=== PATIENT | male | born 1965 | race African-American/Black ===

== ENCOUNTER 2019-10-06 23:54 | Emergency (ER) | payer MEDICAID, OTHER ==
[~2019-10-06] VITALS: Ht 180.3 cm; Wt 86.0 kg
[2019-10-07] MEDS ORDERED: IBUPROFEN 400 MG TABLET. PO ONE (01:00)
[2019-10-07] MEDS ORDERED: NEOMY/BACITR/POLYMYXIN OINT PACKET. TP ONE ×2 (01:15→02:30)
--- NOTE | 2019-10-07 01:43 | PHYS DOC ---
Past Medical History Past Medical History: Diabetes-Type II, Hypertension (SAWYER JAVIER APRN) Past Surgical History: No Surgical History (SAWYER JAVIER APRN) Smoking Status: Never Smoker Alcohol Use: None (SAWYER JAVIER APRN) Attending Signature I have participated in the care of this patient and I have reviewed and agree with all pertinent clinical information above including history, exam, and recommendations. (LISBETH MCFARLAND MD) Adult General Chief Complaint Chief Complaint: FOOT INJURY PAIN HPI HPI Patient is a 54 year old male who presents to the emergency department with complaints of bleeding from his left fifth toe. Patient states he does not know what he did to his toe. He reports a history of diabetic neuropathy and states he is not able to feel his toes. Patient noticed that his fifth toenail was bleeding he thinks that he stubbed his toe into something. Patient states his last tetanus shot was less than 5 years ago. He currently denies any pain. Patient reports a history of chronic swelling in his lower legs he denies any change in his swelling any shortness of breath, chest pain, palpitations, fever, or weeping from his legs. Patient states he is here because he wants to make sure that his toe was okay. (SAWYER JAVIER APRN) Review of Systems Review of Systems Complete ROS is negative unless otherwise noted in HPI. (SAWYER JAVIER APRN) Current Medications Current Medications Current Medications Medications (Trade) Dose Ordered Sig/Grupo Start Time Stop Time Status Last Admin Dose Admin Ibuprofen (Motrin) 800 mg 1X ONCE 10/07/19 01:00 10/07/19 01:01 Cancel Neomycin/ Polymyxin/ Bacitracin (Triple Antibiotic Ointment) 1 pkt 1X ONCE 10/07/19 02:30 10/07/19 02:21 DC (LISBETH MCFARLAND MD) Allergies Allergies Allergies Coded Allergies Type Severity Reaction Last Updated Verified No Known Drug Allergies 10/07/19 No (LISBETH MCFARLAND MD) Physical Exam Physical Exam See Above Constitutional: Well developed, well nourished, no acute distress, non-toxic appearance. [] HENT: Normocephalic, atraumatic, bilateral external ears normal, nose normal. [] Eyes: PERRLA, EOMI, conjunctiva normal, no discharge. [] Neck: Normal range of motion, no stridor. [] Cardiovascular:Heart rate regular rhythm Lungs & Thorax: Respirations even and unlabored, no retractions, no respiratory distress Skin: Warm, dry, no erythema, no rash; less than 1 cm skin tear noted just proximal to the nailbed of the left fifth toe, no active bleeding; BLE skin is dry and flaky without erythema [] Extremities: L foot: No bony tenderness, no cyanosis, no clubbing, ROM intact, no edema, 2+ pedal pulse. [] Neurologic: Alert and oriented X 3, no focal deficits noted. [] Psychologic: Affect normal, judgement normal, mood normal. [] (SAWYER JAVIER APRN) Current Patient Data Vital Signs Vital Signs Date Time Temp Pulse Resp B/P (MAP) Pulse Ox O2 Delivery O2 Flow Rate FiO2 10/07/19 02:25 98.5 78 16 196/89 (124) 98 Room Air 98.5 (LISBETH MCFARLAND MD) EKG EKG [] (SAWYER JAVIER APRN) Radiology/Procedures Radiology/Procedures L foot 5th digit negative for acute fracture read by Dr. Mcfarland [] (SAWYER JAVIER APRN) Course & Med Decision Making Course & Med Decision Making Pertinent Labs and Imaging studies reviewed. (See chart for details) [] (SAWYER JAVIER APRN) Dragon Disclaimer Dragon Disclaimer This electronic medical record was generated, in whole or in part, using a voice recognition dictation system. (SAWYER JAVIER APRN) Departure Departure Impression: Primary Impression: Avulsion of skin of toe Additional Impression: Loose toenail Disposition: HOME, SELF-CARE Condition: STABLE Referrals: UNKNOWN PCP NAME (PCP) Patient Instructions: Toe Avulsion Additional Instructions: Fill the prescription and use it as directed. Keep the area clean and dry. You may take Tylenol or ibuprofen as needed for pain. Keep the dressing that was placed today on for 24 hours then change the dressing twice a day and apply antibiotic ointment to the area. Follow-up with your primary care doctor for wound recheck next week, return to the ER sooner if you develop signs of infection including: redness, warmth, drainage, or a fever. Scripts Cephalexin (CEPHALEXIN) 500 Mg Capsule 1 CAP PO TID for 7 Days, #21 CAP 0 Refills Prov: SAWYER JAVIER APRN 10/07/19 Problem Qualifiers Primary Impression: Avulsion of skin of toe Encounter type: initial encounter Qualified Codes: S91.109A - Unspecified open wound of unspecified toe(s) without damage to nail, initial encounter SAWYER JAVIER APRN Oct 07, 2019 01:43 LISBETH MCFARLAND MD Oct 07, 2019 03:23
[2019-10-07] MEDS ORDERED: CEPH500C PO (02:14)
[2019-10-07 02:25] VITALS: BP 196/89
--- NOTE | 2019-10-07 03:03 | RAD ---
Left foot 3 views: Reason for examination: Stubbed fifth toe. No acute fracture or dislocation is seen. The bone density is normal. No abnormal periosteal reaction is seen. Joint spaces appear to be maintained. IMPRESSION: No acute bony abnormality at the left foot. Electronically signed by: Abiola Reeves MD (10/07/2019 3:00 AM) [id number]
== END 2019-10-07 02:30 | disposition home or self-care (01) ==
LOC: ER 23:54
DX: S91.115A Laceration without foreign body of left lesser toe(s) without damage to nail, initial encounter (principal); E11.40 Type 2 diabetes mellitus with diabetic neuropathy, unspecified; I10 Essential (primary) hypertension; W22.8XXA Striking against or struck by other objects, initial encounter; Y93.89 Activity, other specified; Y92.89 Other specified places as the place of occurrence of the external cause; Y99.8 Other external cause status
CPT/HCPCS: 73630; 99283